=== PATIENT | female | born 1990 | race Caucasian/White ===

== ENCOUNTER 2018-08-03 08:25 | Inpatient (IN) | payer MEDICAID ==
[~2018-08-03] VITALS: Ht 152.4 cm; Wt 81.6 kg
[2018-08-03] MEDS ORDERED: OXYTOCIN/0.9 % SODIUM CHLORIDE 1,000 ML IV SCH (08:36)
[2018-08-03] MEDS ORDERED: LR 1,000 ML IV ONE (08:36)
[2018-08-03] MEDS ORDERED: LR 1,000 ML IV SCH (08:36)
[2018-08-03] MEDS ORDERED: AMPICILLIN SODIUM 2 GM in NS 100 ML IV ONE (08:45)
[2018-08-03] MEDS ORDERED: NALBUPHINE HCL 10 MG/ML AMP IVP PRN (08:45)
[2018-08-03] MEDS ORDERED: TERBUTALINE SULFATE 1 MG/ML VIAL SUBCUT ONE (08:45)
[2018-08-03] MEDS ORDERED: AMPICILLIN SODIUM 2 GM VIAL ONE (09:25)
[2018-08-03 09:26] LABS: BASOPHILS % (AUTO) 0.3 % (0.0-2.0); EOSINOPHILS # (AUTO) 0.1 K/uL (0.0-0.4); HEMATOCRIT 37.3 % (36-48); HEMOGLOBIN 12.6 g/dL (12.0-16.0); LYMPHOCYTES # (AUTO) 2.2 K/uL (1.0-5.5); LYMPHOCYTES % (AUTO) 24.6 % (20.5-51.5); MEAN CORPUSCULAR HEMOGLOBIN 30 pg (27-31); MEAN CORPUSCULAR HGB CONC 34 % (32-36); MEAN CORPUSCULAR VOLUME 89 fL (79.0-98.0); MONOCYTES # (AUTO) 0.4 K/uL (0.0-1.0); MONOCYTES % (AUTO) 4.9 % (1.7-9.3); NEUTROPHILS % (AUTO) 69.2 % (40.0-70.0); PLATELET COUNT (AUTO) 226 K/uL (130-430); RED BLOOD CELL COUNT(AUTO) 4.18 MIL/uL (4.2-6.2); RED CELL DISTRIBUTION WIDTH 12.9 % (9.0-15.0); WHITE BLOOD COUNT (AUTO) 8.7 K/uL (4.8-10.8)
[2018-08-03 12:11] VITALS: BP_SYST 143
[2018-08-03] MEDS ORDERED: fentaNYL CITRATE/PF 100 MCG/2 ML AMP ONE (12:51)
[2018-08-03] MEDS ORDERED: ROPIVACAINE 0.2% 100 ML ONE ×2 (12:51→21:17)
[2018-08-03] MEDS: AMPICILLIN SODIUM 1 GM in NS 50 ML IV SCH ×3 (13:30→21:27)
[2018-08-03] MEDS ORDERED: LR 500 ML IV ONE (21:25)
[2018-08-03] MEDS ORDERED: AMPICILLIN SODIUM 1 GM VIAL ONE (21:29)
[2018-08-03] MEDS ORDERED: FENT2mCg/mL-ROPIVA0.2%/NS EPID 150 ML EP SCH (21:30)
[2018-08-03] MEDS ORDERED: OXYTOCIN 10 UNIT/ML VIAL ONE (22:30)
[2018-08-03] MEDS ORDERED: OXYTOCIN 10 UNIT/ML VIAL IM ONE (22:30)
[2018-08-04] MEDS ORDERED: OXYTOCIN/0.9 % SODIUM CHLORIDE 1,000 ML IV SCH (00:09)
[2018-08-04] MEDS ORDERED: OXYTOCIN/0.9 % SODIUM CHLORIDE 1,000 ML IV ONE (00:09)
[2018-08-04] MEDS ORDERED: METHYLERGONOVINE MALEATE 0.2 MG TABLET PO PRN (00:15)
[2018-08-04] MEDS ORDERED: DIPH-TET-PERTUS Vaccine 0.5 ML VIAL (ADACEL) I.M. PRN (00:15)
[2018-08-04] MEDS ORDERED: WITCH HAZEL LEAF 1 MED.PAD MED.PAD TP PRN (00:15)
[2018-08-04] MEDS ORDERED: OXYCODONE/ACETAMINOPHEN 5-325 TABLET PO PRN (00:15)
[2018-08-04] MEDS ORDERED: DOCUSATE SODIUM 100 MG CAPSULE PO PRN (00:15)
[2018-08-04] MEDS ORDERED: DERMOPLAST SPRAY TP PRN (00:15)
[2018-08-04] MEDS ORDERED: LANOLIN 7 GM OINT. TP PRN (00:15)
[2018-08-04 07:39] LABS: HEMATOCRIT 30.7 % (36-48); HEMOGLOBIN 10.3 g/dL (12.0-16.0)
[2018-08-04] MEDS ORDERED: LR 1,000 ML IV SCH (07:52)
[2018-08-04] MEDS ORDERED: HYDROmorphone 1 MG INJ. 1 MG/ML AMPUL IVP PRN (08:00)
[2018-08-04] MEDS ORDERED: HYDROmorphone 2 MG/ML VIAL IVP PRN ×2 (08:00)
[2018-08-04] MEDS ORDERED: MEPERIDINE HCL/PF 25 MG/ML DISP.SYRIN IVP PRN (08:00)
[2018-08-04 08:19] VITALS: BP_SYST 119
[2018-08-04] MEDS ORDERED: LR 1,000 ML IV.SOLN IV ONE (08:20)
[2018-08-04] MEDS ORDERED: NS IRRIG SOLN 1000 ML IR ONE (08:20)
[2018-08-04] MEDS ORDERED: LIDOCAINE 2%, 20 ML MDV ONE (08:20)
[2018-08-04] MEDS ORDERED: HYDROmorphone 2 MG/ML VIAL ONE (08:49)
[2018-08-04] MEDS: IBUPROFEN 600 MG TABLET PO SCH ×3 (11:01→23:35)
[2018-08-04] MEDS: OXYCODONE/ACETAMINOPHEN 5-325 TABLET PO PRN ×2 (17:19→22:54)
[2018-08-05] MEDS: IBUPROFEN 600 MG TABLET PO SCH (06:10)
[2018-08-05] MEDS: OXYCODONE/ACETAMINOPHEN 5-325 TABLET PO PRN (06:14)
== END 2018-08-05 12:45 | disposition home or self-care (01) | DRG 541 ==
LOC: SPU 08:25
PROVIDERS: ADMIT Obstetrics & Gynecology; ATTEND Obstetrics & Gynecology
PROC: 0UB70ZZ Excision of Bilateral Fallopian Tubes, Open Approach (ICD-10-PCS; 2018-08-04)
PROC: 3E0R3BZ Introduction of Anesthetic Agent into Spinal Canal, Percutaneous Approach (ICD-10-PCS; 2018-08-04)
PROC: 00HU33Z Insertion of Infusion Device into Spinal Canal, Percutaneous Approach (ICD-10-PCS; 2018-08-04)
PROC: 10E0XZZ Delivery of Products of Conception, External Approach (ICD-10-PCS; principal; 2018-08-04 07:30)
DX: O80 Encounter for full-term uncomplicated delivery (principal); O09.43 Supervision of pregnancy with grand multiparity, third trimester; Z30.2 Encounter for sterilization; Z3A.39 39 weeks gestation of pregnancy; Z37.0 Single live birth
CPT/HCPCS: 36415; 85018-TC; 85025; 86886; 86900; 86901; 88302; 90656; 90715; J0290; J1170; J2001; J2590; J2795; J3010; J7120